=== PATIENT | male | born 1985 | race Caucasian/White ===

== ENCOUNTER 2022-08-23 23:22 | Emergency (ER) | payer MEDICARE, MEDICAID ==
[~2022-08-23] VITALS: Ht 182.8 cm; Wt 90.7 kg
[2022-08-23] MEDS ORDERED: AMITIZA24 MCG PO (23:31)
[2022-08-23] MEDS ORDERED: VIMPAT50 MG PO (23:31)
[2022-08-23] MEDS ORDERED: DEPAKOTE125 M1 PO (23:32)
[2022-08-23] MEDS ORDERED: DEPAKOTE ER500 MG PO (23:32)
[2022-08-23] MEDS ORDERED: COLACE100 MG PO (23:32)
[2022-08-23] MEDS ORDERED: HALOPERIDOL10 MG PO (23:34)
[2022-08-23] MEDS ORDERED: FLONASE ALLERG9.9 ML NAS (23:34)
[2022-08-23] MEDS ORDERED: HALDOL20 MG PO (23:35)
[2022-08-23] MEDS ORDERED: HALOPERIDOL5 MG PO (23:35)
[2022-08-23] MEDS ORDERED: CLARITIN10 MG PO (23:36)
[2022-08-23] MEDS ORDERED: LEVOTHYROXINE50 MC1 PO (23:36)
[2022-08-23] MEDS ORDERED: METOPROLOL SUCC50 M1 PO (23:36)
[2022-08-23] MEDS ORDERED: MIRALAX17 GM PO (23:37)
[2022-08-23] MEDS ORDERED: ZYPREXA7.5 M1 PO (23:37)
[2022-08-23] MEDS ORDERED: ZYPREXA20 M1 PO (23:37)
[2022-08-23] MEDS ORDERED: SEROQUEL100 MG PO (23:37)
[2022-08-23] MEDS ORDERED: TRAZODONE100 MG PO (23:38)
[2022-08-23] MEDS ORDERED: SEROQUEL300 MG PO (23:38)
[2022-08-23] MEDS ORDERED: SEROQUEL400 M1 PO (23:38)
[2022-08-24 00:08] LABS: BASO % 0.4 % (0.0-1.0); EOS % 0.4 % (1.0-4.0); HEMATOCRIT 38.5 % (42.0-52.0); LYMPH % 44.8 % (27.0-41.0); MEAN CELL VOLUME 93.9 fl (80.0-94.0); MEAN CORPUSCULAR HGB 32.9 pg (27.0-31.0); MEAN CORPUSCULAR HGB CONC 35.1 g/dl (33.0-37.0); MEAN PLATELET VOLUME 9.6 fl (9.6-12.3); MONO # 0.6 10*3/uL (0.1-1.0); MONO % 12.3 % (3.0-9.0); NEUT # 1.9 10*3/uL (2.3-7.9); NEUT % 41.9 % (47.0-73.0); PLATELET COUNT AUTOMATED 149 10*3/uL (130-400); RED CELL DISTRI WIDTH 12.5 % (0-14.5); WHITE BLOOD COUNT 4.5 10*3/uL (4.8-10.8)
[2022-08-24 00:26] LABS: ALKALINE PHOSPHATASE 43 U/L (46-116); BUN 7 mg/dl (9-23); CHLORIDE 101 mmol/L (98-107); POTASSIUM 3.6 mmol/L (3.4-5.1); THYROID STIM HORMONE (HS) 4.363 uIU/ml (0.550-4.780); TOTAL PROTEIN 6.5 gm/dL (6.0-8.0)
[2022-08-24 00:27] LABS: SGPT/ALT < 7 U/L (10-49)
== END 2022-08-24 01:33 | disposition home or self-care (01) ==
LOC: ED 23:22
PROVIDERS: Emergency Medicine
DX: R55 Syncope and collapse (principal); I10 Essential (primary) hypertension